=== PATIENT | female | born 1990 | race Caucasian/White ===

== ENCOUNTER 2020-09-05 16:34 | Emergency (ER) | payer OTHER ==
[2020-09-05 16:53] VITALS: TEMP 98.5; BMI 27.1
[2020-09-05 18:30] LABS: BASO % 0.3 % (0-2.0); EOS % 0.8 % (0-4.5); HEMOGLOBIN 14.1 GM/dL (10.7-15.3); LYMPH % 16.2 % (8-40); MCH 32.7 pg (25.7-33.7); MCHC 34.4 g/dl (32.0-36.0); MEAN CELL VOLUME 95.2 fl (80-96); MEAN PLT VOLUME 7.3 fl (7.5-11.1); MONO % 7.7 % (3.8-10.2); PLATELET COUNT 301 K/MM3 (134-434); RDW 12.7 % (11.6-15.6); WHITE BLOOD COUNT 10.6 K/mm3 (4.0-10.0)
[2020-09-05 18:35] LABS: PH,URINE 8.5 (5.0-8.0); URINE APPEARANCE CLEAR; URINE BILIRUBIN NEGATIVE (NEGATIVE); URINE COLOR YELLOW; URINE GLUCOSE (UA) NEGATIVE (NEGATIVE); URINE KETONE NEGATIVE (NEGATIVE); URINE LEUK ESTERASE NEGATIVE (NEGATIVE); URINE NITRITE NEGATIVE (NEGATIVE); URINE PROTEIN NEGATIVE (NEGATIVE)
[2020-09-05 18:50] LABS: BLOOD UREA NITROGEN 8.4 mg/dL (7-18)
[2020-09-05 18:51] LABS: ALBUMIN 3.6 g/dl (3.4-5.0); MAGNESIUM 2.2 mg/dL (1.8-2.4)
[2020-09-05 18:53] LABS: CREATININE 0.6 mg/dL (0.55-1.3)
[2020-09-05 18:55] LABS: BILIRUBIN,TOTAL 0.2 mg/dL (0.2-1); TOT PROT 6.9 g/dl (6.4-8.2)
[2020-09-05 20:38] VITALS: BP 110/64; PULSE 76
== END 2020-09-05 20:37 | disposition home or self-care (01) ==
LOC: JER 16:34
DX: R10.9 Unspecified abdominal pain (principal); Z3A.01 Less than 8 weeks gestation of pregnancy
CPT/HCPCS: 36415; 76801-TC; 80053; 81003; 83690; 83735; 84702; 85025; 87086; 99284-25

== ENCOUNTER 2021-04-12 13:00 | Inpatient (IN) | payer OTHER ==
[~2021-04-12 13:00] MED LIST: OXYTOCIN 10 UNITS/ML VIAL IM ONE
[2021-04-12] MEDS ORDERED: OXYTOCIN 10 UNITS/ML VIAL ONE (13:48)
[2021-04-12] MEDS ORDERED: BENZOCAINE 28 GM HEMORRHOIDAL OINTMENT TP PRN (13:50)
[2021-04-12] MEDS ORDERED: WITCH HAZEL 50% (TUCKS) 40 PAD/JAR PAD TP PRN (13:50)
[2021-04-12] MEDS ORDERED: BENZOCAINE 20% 57 GM BOTTLE TP PRN (13:50)
[2021-04-12] MEDS ORDERED: BISACODYL 10 MG SUPP.RECT RC PRN (13:50)
[2021-04-12] MEDS ORDERED: METHYLERGONOVINE MALEATE 0.2 MG/1 ML AMP IM PRN (13:50)
[2021-04-12] MEDS ORDERED: ACETAMINOPHEN 325 MG TABLET (FP) PO PRN (13:50)
[2021-04-12] MEDS ORDERED: OXYTOCIN 20 UNITS in 0.9% NS 20 UNIT/1,000 ML INFUS.BAG IV SCH (14:00)
[2021-04-12] MEDS ORDERED: MEPERIDINE HCL 50 MG/ML VIAL ONE (14:08)
[2021-04-12 14:14] LABS: BASO % 0.2 % (0-2.0); HEMATOCRIT 39.6 % (32.4-45.2); HEMOGLOBIN 13.8 GM/dL (10.7-15.3); LYMPH % 9.7 % (8-40); MCH 32.5 pg (25.7-33.7); MCHC 34.9 g/dl (32.0-36.0); MEAN PLT VOLUME 8.3 fl (7.5-11.1); MONO % 4.3 % (3.8-10.2); NEUT % 85.8 % (42.8-82.8); PLATELET COUNT 281 10^3/uL (134-434); RBC 4.25 M/mm3 (3.60-5.2); RDW 12.4 % (11.6-15.6); WHITE BLOOD COUNT 19.3 K/mm3 (4.0-10.0)
[2021-04-12 14:20] LABS: INR 0.96 (0.83-1.09); PROTHROMBIN TIME (PATIENT) 10.8 SEC (9.7-13.0)
[2021-04-12] MEDS ORDERED: MEPERIDINE HCL 50 MG/ML VIAL IM STA (14:20)
[2021-04-12 14:22] LABS: ACTIVATED PTT 27.9 SECONDS (25.2-36.5)
[2021-04-12 14:43] LABS: BLOOD UREA NITROGEN 5.8 mg/dL (7-18)
[2021-04-12 14:46] LABS: CREATININE 0.5 mg/dL (0.55-1.3)
[2021-04-12 14:54] VITALS: BMI 31.3
[2021-04-12] MEDS: IBUPROFEN 600 MG TABLET (FP) PO PRN (23:42)
[2021-04-13 01:01] LABS: BASO % 0.1 % (0-2.0); EOS % 0.1 % (0-4.5); HEMATOCRIT 32.2 % (32.4-45.2); HEMOGLOBIN 11.2 GM/dL (10.7-15.3); LYMPH % 11.4 % (8-40); MCH 32.3 pg (25.7-33.7); MCHC 34.6 g/dl (32.0-36.0); MEAN CELL VOLUME 93.4 fl (80-96); MEAN PLT VOLUME 7.9 fl (7.5-11.1); MONO % 6.2 % (3.8-10.2); NEUT % 82.2 % (42.8-82.8); PLATELET COUNT 269 10^3/uL (134-434); RBC 3.45 M/mm3 (3.60-5.2); RDW 12.7 % (11.6-15.6); WHITE BLOOD COUNT 17.6 K/mm3 (4.0-10.0)
[2021-04-13] MEDS: IBUPROFEN 600 MG TABLET (FP) PO PRN ×3 (08:41→20:36)
[2021-04-13] MEDS: PRENATAL VITAMINS W/ FOLIC ACID TABLET (FP) PO SCH (09:42)
[2021-04-13] MEDS ORDERED: SENNOSIDES/DOCUSATE COMBO (SENNA PLUS) TABLET (UD) PO PRN (22:00)
[2021-04-13 22:22] VITALS: TEMP 98.2
[2021-04-14] MEDS: IBUPROFEN 600 MG TABLET (FP) PO PRN ×2 (05:15→09:30)
[2021-04-14] MEDS: PRENATAL VITAMINS W/ FOLIC ACID TABLET (FP) PO SCH (09:30)
[2021-04-14 10:22] VITALS: BP 106/73; PULSE 71
[2021-04-14 11:44] LABS: BASO % 0.1 % (0-2.0); EOS % 1.2 % (0-4.5); HEMATOCRIT 29.5 % (32.4-45.2); HEMOGLOBIN 10.4 GM/dL (10.7-15.3); MCH 33.3 pg (25.7-33.7); MCHC 35.2 g/dl (32.0-36.0); MEAN CELL VOLUME 94.4 fl (80-96); MEAN PLT VOLUME 7.8 fl (7.5-11.1); NEUT % 79.7 % (42.8-82.8); PLATELET COUNT 261 10^3/uL (134-434); RBC 3.12 M/mm3 (3.60-5.2); RDW 12.9 % (11.6-15.6); WHITE BLOOD COUNT 13.7 K/mm3 (4.0-10.0)
== END 2021-04-14 17:00 | disposition home or self-care (01) | DRG 560 ==
LOC: JLDR 13:00 → J3W 16:00
PROVIDERS: ADMIT Obstetrics & Gynecology; ATTEND Obstetrics & Gynecology
PROC: 10E0XZZ Delivery of Products of Conception, External Approach (ICD-10-PCS; principal; 2021-04-12)
PROC: 0W8NXZZ Division of Female Perineum, External Approach (ICD-10-PCS; 2021-04-12)
PROC: 0HQ9XZZ Repair Perineum Skin, External Approach (ICD-10-PCS; 2021-04-12)
DX: O62.3 Precipitate labor (principal); Z3A.38 38 weeks gestation of pregnancy; Z37.0 Single live birth; O70.1 Second degree perineal laceration during delivery; O90.89 Other complications of the puerperium, not elsewhere classified; R55 Syncope and collapse
CPT/HCPCS: 36415; 59025; 59409; 80048; 85025; 85610; 85730; 86780; 86850; 86900; 86901; C9803; J2175; U0003; U0005

== ENCOUNTER 2021-05-13 23:22 | Emergency (ER) | payer OTHER ==
[2021-05-13 23:43] VITALS: BP 103/78; PULSE 78; TEMP 98.6; BMI 29.2
== END 2021-05-14 01:40 | disposition home or self-care (01) ==
LOC: JER 23:22
DX: K64.9 Unspecified hemorrhoids (principal)
CPT/HCPCS: 99283-25